=== PATIENT | male | born 1980 | race Caucasian/White ===

== ENCOUNTER 2016-11-12 22:35 | Emergency (ER) | payer BC ==
--- NOTE | 2016-11-12 23:19 | Emergency Department Record ---
History of Present Illness - General Chief Complaint: Ankle/Foot Injury Stated Complaint: LF ANKLE INJURY Time Seen by Provider: 11/12/16 22:52 Source: Patient Mode of Arrival: Ambulatory Limitations: No limitations - History of Present Illness Initial Comments: pt was playing hockey when he was thrown into the wall and caught his skate under his other leg and injured his leg and foot. Complaint: Leg injury, Foot injury Onset/Timin -: Hour(s) Injury: Leg: Left, Ankle: Left, Foot: Left Type of Injury: Hyperextension Place: Other Severity: Moderate Improves With: Cold therapy, NSAID Worsens With: Movement, Palpation, Weight bearing Context: Other Associated Symptoms: Swelling, Ambulatory, Able to partially bear weight Treatments Prior to Arrival: Bandage, Cold therapy, NSAIDS - Related Data Home Medications Medication Instructions Recorded Confirmed Last Taken Albuterol Sulfate [Ventolin Hfa] 1 - 2 puff IH Q6H PRN 11/12/16 11/12/16 Allergies Allergy/AdvReac Type Severity Reaction Status Date / Time Penicillins Allergy HIVES Verified 02/05/14 17:50 morphine AdvReac HEADACHE Verified 11/12/16 22:40 Travel Screening - Travel/Exposure Within Last 30 Days Have you traveled within the last 30 days?: No Review of Systems Reviewed: No additional complaints except as noted below Constitutional: Reports: As per HPI. Denies: Chills, Fever, Malaise, Night sweats, Weakness, Weight change Eyes: Reports: As per HPI. Denies: Eye discharge, Eye pain, Photophobia, Vision change ENT: Reports: As per HPI. Denies: Congestion, Dental pain, Ear pain, Epistaxis , Hearing loss, Throat pain Respiratory: Reports: As per HPI. Denies: Cough, Dyspnea, Hemoptysis, Stridor, Wheezes Cardiovascular: Reports: As per HPI. Denies: Arrhythmia, Chest pain, Dyspnea on exertion, Edema, Murmurs, Orthopnea, Palpitations, Paroxysmal nocturnal dyspnea, Rheumatic Fever, Syncope Endocrine: Reports: As per HPI. Denies: Fatigue, Heat or cold intolerance, Polydipsia, Polyuria Gastrointestinal: Reports: As per HPI. Denies: Abdominal pain, Constipation, Diarrhea, Hematemesis, Hematochezia, Melena, Nausea, Vomiting Genitourinary: Reports: As per HPI. Denies: Dysuria, Frequency, Hematuria, Incontinence, Retention, Testicular pain, Testicular mass, Urgency Musculoskeletal: Reports: As per HPI. Denies: Arthralgia, Back pain, Gout, Joint swelling, Myalgia, Neck pain Skin: Reports: As per HPI. Denies: Bruising, Change in color, Change in hair/ nails, Lesions, Pruritus, Rash Neurological: Reports: As per HPI. Denies: Abnormal gait, Confusion, Headache, Numbness, Paresthesias, Seizure, Tingling, Tremors, Vertigo, Weakness Psychiatric: Reports: As per HPI. Denies: Anxiety, Auditory hallucinations, Depression, Homicidal thoughts, Suicidal thoughts, Visual hallucinations Hematological/Lymphatic: Reports: As per HPI. Denies: Anemia, Blood Clots, Easy bleeding, Easy bruising, Swollen glands Past Medical History - SOCIAL HISTORY Smoking Status: Former smoker Alcohol Use: Occassional Drug Use: None - RESPIRATORY Hx Respiratory Disorders: Yes Hx Asthma: Yes (exercise induced) - CARDIOVASCULAR Hx Cardio Disorders: No Comment:: murmur - NEURO Hx Neuro Disorders: No - GI Hx GI Disorders: No - Hx Genitourinary Disorders: No - ENDOCRINE Hx Endocrine Disorders: No - MUSCULOSKELETAL Hx Musculoskeletal Disorders: No - PSYCH Hx Psych Problems: Yes Hx Anxiety: Yes (social anxiety) - HEMATOLOGY/ONCOLOGY Hx Hematology/Oncology Disorders: No Family Medical History Any Significant Family History?: No Hx Heart Disease: Grandparents Physical Exam - General General Appearance: Alert, Oriented x3, Cooperative, Mild distress - Head Head exam: Normal inspection - Eye Eye exam: Normal appearance, PERRL, EOMI Pupils: Normal accommodation - ENT ENT exam: Normal exam, Mucous membranes moist, Normal external ear exam, Normal orophraynx, TM's normal bilaterally Ear exam: Normal external inspection. negative: External canal tenderness Nasal Exam: Normal inspection. negative: Discharge, Sinus tenderness Mouth exam: Normal external inspection, Tongue normal Teeth exam: Normal inspection. negative: Dental caries Throat exam: Normal inspection. negative: Tonsillar erythema, Tonsillar exudate - Neck Neck exam: Normal inspection, Full ROM. negative: Tenderness - Respiratory Respiratory exam: Normal lung sounds bilaterally. negative: Respiratory distress - Cardiovascular Cardiovascular Exam: Regular rate, Normal rhythm, Normal heart sounds - GI/Abdominal GI/Abdominal exam: Soft, Normal bowel sounds. negative: Tenderness - Rectal Rectal exam: Deferred - exam: Deferred - Extremities Extremities exam: Normal capillary refill, Tenderness. negative: Normal inspection, Full ROM - Back Back exam: Reports: Normal inspection, Full ROM. Denies: Muscle spasm, Rash noted, Tenderness - Neurological Neurological exam: Alert, CN II-XII intact, Normal gait, Oriented X3 - Psychiatric Psychiatric exam: Normal affect, Normal mood - Skin Skin exam: Dry, Intact, Normal color, Warm Course Vital Signs 11/12/16 22:54 Temperature 99.2 F Pulse Rate [ 112 H Pulse Ox Probe] Respiratory 20 Rate Blood Pressure 148/98 [Left Arm] Pulse Ox 96 Disposition Disposition: Discharge Clinical Impression: Ankle sprain Qualifiers: Encounter type: initial encounter Involved ligament of ankle: unspecified ligament Laterality: left Qualified Code(s): S93.402A - Sprain of unspecified ligament of left ankle, initial encounter Disposition: Home, Self-Care Condition: (1) Good Instructions: Ankle Sprain (ED) Additional Instructions: follow up with family doctor. return sooner if worse. motrin when needed Forms: Patient Portal Access
--- NOTE | 2016-11-13 15:06 | RADIOLOGY REPORT ---
EXAM: LEFT FOOT COMPLETE HISTORY: LATERAL FOOT AND ANKLE PAIN POST INJURY TONIGHT. TECHNIQUE: Three views of the left foot were obtained. Comparison: Same day radiographic examination of the left lower leg. Encounter: Initial. FINDINGS: There is normal bone mineralization. No acute fracture, dislocation , or destructive bone lesion is seen. The articular relations are maintained. There is possible developmental fusion of the fifth DIP joint. A small planar calcaneal spur is present. No focal soft tissue abnormality is seen. IMPRESSION: NO ACUTE FRACTURE NOR DISLOCATION. SMALL PLANTAR CALCANEAL SPUR. JOB NUMBER: [id number] [facility]
--- NOTE | 2016-11-13 15:09 | RADIOLOGY REPORT ---
EXAM: LEFT LOWER LEG HISTORY: LATERAL FOOT AND ANKLE PAIN RADIATING PROXIMALLY POST INJURY TONIGHT. TECHNIQUE: AP and lateral views of the left lower leg (tibia and fibula) were obtained. Comparison: Same day radiographic examination of the left foot. Encounter: Initial. FINDINGS: There is normal bone mineralization. No acute fracture, dislocation or destructive bone lesion is seen. The articular relations are maintained. No focal soft tissue abnormality is identified. IMPRESSION: NO ACUTE FRACTURE NOR DISLOCATION IDENTIFIED. JOB NUMBER: [id number] [facility]
== END 2016-11-12 23:51 | disposition home or self-care (01) ==
LOC: ER 22:35
DX: S93.402A Sprain of unspecified ligament of left ankle, initial encounter (principal); M79.662 Pain in left lower leg; W22.8XXA Striking against or struck by other objects, initial encounter; Y93.22 Activity, ice hockey
CPT/HCPCS: 99283